=== PATIENT | male | born 1995 | race Caucasian/White ===

== ENCOUNTER 2018-11-19 13:00 | Emergency (ER) | payer OTHER ==
[~2018-11-19] VITALS: Ht 177.8 cm; Wt 73.5 kg
[~2018-11-19 13:00] MED LIST: MEDROLDOSEPACK PO
[2018-11-19 13:10] VITALS: BP 126/66
[2018-11-19] MEDS ORDERED: NOHOMEMEDICATIONS (13:12)
[2018-11-19] MEDS ORDERED: KEFLEX500 M1 PO (13:19)
== END 2018-11-19 13:40 | disposition home or self-care (01) ==
LOC: M.ERS 13:00
DX: T22.112A Burn of first degree of left forearm, initial encounter (principal); T31.0 Burns involving less than 10% of body surface; X10.1XXA Contact with hot food, initial encounter; Y93.89 Activity, other specified; Y92.89 Other specified places as the place of occurrence of the external cause; Y99.8 Other external cause status